=== PATIENT | male | born 1985 | race Caucasian/White ===

== ENCOUNTER 2024-12-05 14:28 | Emergency (ER) | payer SELFPAY ==
[2024-12-05] MEDS ORDERED: Insulin Regular, Human 100 Units/ML 10 ML Vial ONE (14:30)
[2024-12-05] MEDS ORDERED: Calcium Chloride 10% 1 GM/10 ML Syringe ONE ×3 (14:30→14:31)
[2024-12-05] MEDS ORDERED: Naloxone 0.4 MG/ML SDV ONE (14:31)
[2024-12-05] MEDS ORDERED: Naloxone 2 MG/2 ML Syringe ONE ×2 (14:31)
[2024-12-05] MEDS ORDERED: Sodium Chloride 0.9% 1,000 ML IV ONE ×4 (14:35→15:40)
[2024-12-05] MEDS ORDERED: EPINEPHrine 1 MG/1 ML Amp ONE (14:37)
[2024-12-05 15:01] LABS: PCO2 ARTERIAL 18.9 mmHg (35.0-45.0)
[2024-12-05 15:02] LABS: BASE EXCESS ARTERIAL -25.7 (-2-2.0); BICARBONATE,ARTERIAL 4.5 meq/L (22.0-26.0); O2 SATURATION ARTERIAL 99.2 % (96.0-97.0)
[2024-12-05 15:07] LABS: BARBITURATE SCREEN,URINE NEGATIVE (CUTOFF=200); BENZODIAZEPINES SCREEN,URINE NEGATIVE (CUTOFF=150); BUPRENORPHINE SCREEN,URINE NEGATIVE (CUTOFF=10); METHADONE SCREEN, URINE NEGATIVE (CUT0FF=200); METHAMPHETAMINES SCREEN, URINE NEGATIVE (CUTOFF=500); OXYCODONE SCREEN,URINE NEGATIVE (CUT0FF=100); THC SCREEN,URINE 20 NG/ML NEGATIVE (CUTOFF=50)
[2024-12-05 15:08] LABS: AMPHETAMINES SCREEN, URINE NEGATIVE (CUTOFF=500)
[2024-12-05 15:15] LABS: BASOPHILS ABSOLUTE AUTO 0.1 K/mm3 (0.0-0.2); BASOPHILS PERCENT AUTO 0.8 % (0.0-1.0); EOSINOPHILS PERCENT AUTO 0.2 % (0.0-6.0); HEMATOCRIT 41.7 % (42.0-52.0); HEMOGLOBIN 12.9 gm/dl (14.0-18.0); IMMATURE GRAN ABSOLUTE AUTO 1.46 K/mm3 (0.00-0.05); LYMPHOCYTES ABSOLUTE AUTO 5.3 K/mm3 (1.0-4.8); MEAN CORPUSCULAR HGB CONC 30.9 g/dl (32.0-36.0); MEAN PLATELET VOLUME 12.6 fl (9.4-12.4); MONOCYTES ABSOLUTE AUTO 0.7 K/mm3 (0.0-0.8); MONOCYTES PERCENT AUTO 3.7 % (0.0-8.0); NEUTROPHILS ABSOLUTE AUTO 10.6 K/mm3 (1.8-7.7); NEUTROPHILS PERCENT AUTO 58.3 % (41.0-71.0); NRBC ABSOLUTE 0.02 (0.00-0.02); NRBC PERCENT 0.1 % (0.0-0.2); PLATELET COUNT,PLT 327 K/mm3 (150-400); WHITE BLOOD CELL COUNT,WBC 18.25 K/mm3 (3.9-11.3)
[2024-12-05] MEDS: Insulin Regular in 0.9 % NACL 100 ML IV SCH (15:15)
[2024-12-05 15:33] LABS: A/G RATIO 0.9 (1-2); ALANINE AMINOTRANSFERASE,ALT 95 U/L (16-63); ALKALINE PHOSPHATASE 103 U/L (46-116); BILIRUBIN TOTAL 0.8 mg/dL (0.2-1.0); BLOOD UREA NITROGEN,BUN 45 mg/dL (7-18); CREATININE 4.1 mg/dL (0.7-1.3); ESTIMATED GFR 18 mL/min (>60); MAGNESIUM 2.5 mg/dL (1.8-2.4); PROTEIN TOTAL,TP 6.2 g/dl (6.4-8.2)
[2024-12-05 15:36] LABS: TROPONIN I HIGH SENSITIVITY 215 pg/mL (<=76)
[2024-12-05 15:37] LABS: ASPARTATE AMNIOTRANSFERASE,AST 226 U/L (15-37)
[2024-12-05 15:46] LABS: CHLORIDE,CL 77 mEq/L (98-107)
[2024-12-05 16:00] LABS: SODIUM,NA 117 mEq/L (136-145)
[2024-12-05 16:01] LABS: ANION GAP 39.4 (5-15); CARBON DIOXIDE,CO2 6 mEq/L (21-32)
[2024-12-05 16:02] LABS: GLUCOSE RANDOM 952 mg/dL (70-99)
[2024-12-05 16:03] LABS: POTASSIUM,K 5.4 mEq/L (3.5-5.1)
[2024-12-05 16:31] LABS: BLOOD UREA NITROGEN,BUN 40 mg/dL (7-18); BUN/CREATININE RATIO 11.8 (14-18); CALCIUM 9.3 mg/dL (8.5-10.1); CHLORIDE,CL 89 mEq/L (98-107); CREATININE 3.4 mg/dL (0.7-1.3); ESTIMATED GFR 23 mL/min (>60); SODIUM,NA 124 mEq/L (136-145)
[2024-12-05] MEDS: Insulin Regular in 0.9 % NACL 100 ML ONE (16:36)
[2024-12-05 16:47] LABS: ANION GAP 32.6 (5-15); CARBON DIOXIDE,CO2 < 7 mEq/L (21-32); GLUCOSE RANDOM 755 mg/dL (70-99)
[2024-12-05 16:50] LABS: POTASSIUM,K 4.6 mEq/L (3.5-5.1)
[2024-12-05 16:55] LABS: BICARBONATE,ARTERIAL 4.4 meq/L (22.0-26.0); O2 SATURATION ARTERIAL 99.1 % (96.0-97.0); PCO2 ARTERIAL 15.4 mmHg (35.0-45.0)
[2024-12-05] MEDS ORDERED: Potassium Chloride 10 MEQ in Premix Bag 1 BAG IV SCH (17:00)
[2024-12-05] MEDS: Potassium Chloride 10 MEQ in Premix Bag 1 BAG IV STA (17:06)
[2024-12-05] MEDS: Piperacillin/Tazobactam 4.5 GM in Water For Injection, Sterile 20 ML IV ONE (17:27)
[2024-12-05] MEDS: Amiodarone 150 MG/100 ML 100 ML IV ONE (17:44)
[2024-12-05] MEDS: Potassium Chloride 10 MEQ in Premix Bag 1 BAG IV ONE (18:02)
[2024-12-05] MEDS: Amiodarone 360 MG/200 ML 360 MG/200 ML BAG IV ONE (18:02)
[2024-12-05] MEDS: Piperacillin/Tazobactam 4.5 GM in Sodium Chloride 0.9% 100 ML IV ONE (20:09)
== END 2024-12-05 18:30 ==
LOC: JD.ED 14:28
DX: R09.2 Respiratory arrest (principal); E87.5 Hyperkalemia; E11.10 Type 2 diabetes mellitus with ketoacidosis without coma; I48.92 Unspecified atrial flutter; R79.89 Other specified abnormal findings of blood chemistry
CPT/HCPCS: 31500; 36415; 36556; 36600; 51702; 70450; 71045; 80048; 80053; 80306; 80307; 82803; 82947; 83605; 83735; 84484; 85025; 92950; 93005; 96365; 96366; 96368; 96375; 96376; 99291; 99292; J0171; J0282; J1815; J2310; J2543; J3480; J7030; 93010; 99140; J3490